=== PATIENT | female | born 1990 | race Caucasian/White ===

== ENCOUNTER 2018-01-31 07:25 | Emergency (ER) | payer OTHER ==
[2018-01-31] MEDS: morphine 4 MG/ML VIAL IV (08:01)
[2018-01-31] MEDS: ONDANSETRON 4 MG INJ IV (08:01)
[2018-01-31] MEDS: SOD CHLORIDE 0.9% 1,000 ML IV ×2 (08:01→09:59)
[2018-01-31 08:04] LABS: ADD MAN DIFF? NO
[2018-01-31 08:07] LABS: WHITE BLOOD COUNT 16.8 10^3/ul (4.8-10.8)
[2018-01-31 08:07] LABS: ABNORMAL IP MESSAGE 1; BASOPHILS % 0.2 % (0.0-2.0); EOSINOPHILS % 0.1 % (0.0-7.0); HEMATOCRIT 43.9 % (37.0-47.0); HEMOGLOBIN 14.5 g/dl (12.0-16.0); LYMPHOCYTES # 0.6 10^3/ul (0.8-2.9); LYMPHOCYTES % 3.4 % (15.0-51.0); MEAN CORPUSCULAR VOLUME 90.9 fl (82.0-101.0); MEAN PLATELET VOLUME 10.7 fl (7.4-10.4); MONOCYTE # 0.6 10^3/ul (0.3-0.9); MONOCYTES % 3.6 % (0.0-11.0); NEUTROPHIL # 15.5 10^3/ul (1.6-7.5); NEUTROPHILS % 92.2 % (39.0-77.0); PLATELET COUNT 293 10^3/UL (140-415); RED BLOOD COUNT 4.83 10^6/ul (4.20-5.40); RED CELL DISTRIBUTION WIDTH 12.9 % (11.5-14.5)
[2018-01-31 08:10] LABS: POSITIVE DIFF @See below
[2018-01-31 08:27] LABS: ALANINE AMINOTRANSFERASE 27 IU/L (13-69); ALBUMIN 5.1 g/dl (3.3-4.9); ALBUMIN/GLOBULIN RATIO 1.18; ALKALINE PHOSPHATASE 100 IU/L (42-121); ANION GAP 23 (8-16); ASPARTATE AMINO TRANSFERASE 34 IU/L (15-46); BILIRUBIN,INDIRECT 1.2 mg/dl (0-1.1); BILIRUBIN,TOTAL 1.2 mg/dl (0.2-1.3); BLOOD UREA NITROGEN 17 mg/dl (7-20); CALCIUM 9.9 mg/dl (8.4-10.2); CARBON DIOXIDE 18 mmol/L (21-31); CHLORIDE 107 mmol/L (97-110); CREATININE 0.84 mg/dl (0.44-1.00); GLUCOSE 193 mg/dl (70-220); LIPASE 201 U/L (23-300); POTASSIUM 5.2 mmol/L (3.5-5.1); SODIUM 143 mmol/L (135-144); TOTAL PROTEIN 9.4 g/dl (6.1-8.1)
[2018-01-31] MEDS: METOCLOPRAMIDE 10 MG INJ IV (08:48)
[2018-01-31] MEDS: LORAZEPAM 2 MG INJ IV (08:48)
[2018-01-31] MEDS: SOD CHLORIDE 0.9% 100 ML (10:54)
[2018-01-31] MEDS: IOHEXOL 300MG/ML 150 ML BTL (10:54)
== END 2018-01-31 12:12 | disposition home or self-care (01) ==
LOC: FTE 07:25
DX: R10.31 Right lower quadrant pain (principal); R19.7 Diarrhea, unspecified
CPT/HCPCS: 36415; 74177; 80053; 81025; 83690; 85025; 96374; 96375; 99285-25